=== PATIENT | female | born 1995 | race Hispanic/Latino ===

== ENCOUNTER 2018-01-04 08:18 | Inpatient (IN) | payer OTHER ==
[~2018-01-04] VITALS: Ht 152.4 cm; Wt 73.0 kg
--- NOTE | 2018-01-04 17:43 | PR ---
[facility] [address], [place] [address] Signed Progress Notes IP Datetime Report Generated by EMILY: 01/04/2018 17:42 PROGRESS NOTES: [id number] Impression: Slow Progression of Labor Procedures: Sterile Vag Exam Plan: Continue present management Informed Consent Obtain: Vaginal Delivery; Risks, Benefits and Alternatives Discussed VITAL SIGNS: [id number] Vital Signs: Reviewed; Within Normal Limits EXAM: [id number] Dilatation: 3.5 Effacement: 90 Station: -2 Uterine Contractions: q 2 min MEMBRANES: [id number] Membrane Status: Ruptured Amniotic Fluid Color: Meconium, Light Comments: Comfortable after epidural. Progressing slowly. Will continue. Fetus A: [id number] FHR Baseline: 140 Variability: Moderate 6-25bpm Accelerations: 15X15 Decelerations: None FHR Category: Category I Presentation: Vertex Comments on Fetus A: No evidence of metabolic acidosis Fetus B: [id number] Signing Physician: Milli Max MD Copies: ~ *Electronically Signed* 01/04/18 1742 MILLI MAX MD PATIENT NAME: JACKELYN NGUYEN TRAMAINE PROGRESS NOTE DATE OF : 89 PHYSICIAN: MILLI MAX MD RPT #: [id number] REPORT IS CONFIDENTIAL AND NOT TO BE RELEASED WITHOUT AUTHORIZATION
--- NOTE | 2018-01-05 11:31 | PR ---
[facility] [address] [facility] [place], [place] [address] Signed PP Progress Notes Datetime Report Generated by EMILY: 01/05/2018 11:31 SUBJECTIVE: [id number] Pain: Within normal limits Nausea/Vomiting: Denies Vital Signs: [id number] Vital Signs: Reviewed; Within Normal Limits EXAM: [id number] Cardiovascular: Not Done Respiratory: Not Done Abdomen/Uterus: Abnormal Lochia: Normal Vulva/Perineum: Not Done Breasts: Not Done CVA Tenderness: Not Done Extremities: Normal Incision: Not Applicable Progress: Abnormal Exam Comments: Fundus firm, NT @ U-1. IMPRESSION/PLAN/PROCEDURES: [id number] Impression: Normal progression Plan: Continue present management Progress Notes: Doing well though little sleep and not breast feeding well. Signing Physician: Milli Max MD Copies: ~ *Electronically Signed* 01/05/18 1131 MILLI MAX MD PATIENT NAME: JACKELYN NGUYEN PROGRESS NOTE DATE OF : [birth year] PHYSICIAN: MILLI MAX MD RPT #: [id number] REPORT IS CONFIDENTIAL AND NOT TO BE RELEASED WITHOUT AUTHORIZATION
--- NOTE | 2018-01-06 09:51 | PR ---
[facility] [address] [facility] [place], [place] [address] Signed PP Progress Notes Datetime Report Generated by EMILY: 01/06/2018 09:51 SUBJECTIVE: [id number] Pain: Within normal limits Nausea/Vomiting: Denies Vital Signs: [id number] Vital Signs: Reviewed; Within Normal Limits EXAM: [id number] Cardiovascular: Not Done Respiratory: Not Done Abdomen/Uterus: Abnormal Lochia: Normal Vulva/Perineum: Not Done Breasts: Not Done CVA Tenderness: Not Done Extremities: Normal Incision: Not Applicable Progress: Normal Exam Comments: Fundus firm, NT @ U-1. H/H 9.7/28.8, WBC 10.2, plat 170k IMPRESSION/PLAN/PROCEDURES: [id number] Impression: Normal progression Plan: Continue present management Progress Notes: Breast feeding improving though little sleep overnight. Signing Physician: Milli Max MD Copies: ~ *Electronically Signed* 01/06/18 0951 MILLI MAX MD PATIENT NAME: JACKELYN NGUYEN TRAMAINE PROGRESS NOTE DATE OF : [birth year] PHYSICIAN: MILLI MAX MD RPT #: [id number] REPORT IS CONFIDENTIAL AND NOT TO BE RELEASED WITHOUT AUTHORIZATION
--- NOTE | 2018-01-07 09:08 | PR ---
[facility] [place] [facility] [address] [facility] [place], [place] [address] Signed PP Progress Notes Datetime Report Generated by CPCarmen: 01/07/2018 09:08 SUBJECTIVE: [id number] Pain: Within normal limits Nausea/Vomiting: Denies Vital Signs: [id number] Vital Signs: Reviewed; Within Normal Limits EXAM: [id number] Cardiovascular: Not Done Respiratory: Not Done Abdomen/Uterus: Abnormal Lochia: Normal Vulva/Perineum: Not Done Breasts: Not Done CVA Tenderness: Not Done Extremities: Normal Incision: Not Applicable Progress: Normal Exam Comments: Fundus firm, NT @ U-1. IMPRESSION/PLAN/PROCEDURES: [id number] Impression: Normal progression Plan: Discharge Procedures: None Progress Notes: Doing well. She is ready for D/C. Signing Physician: Milli Max MD Copies: ~ *Electronically Signed* 01/07/18 0908 MILLI MAX MD PATIENT NAME: JACKELYN NGUYEN PROGRESS NOTE DATE OF : [birth year] PHYSICIAN: MILLI MAX MD RPT #: [id number] REPORT IS CONFIDENTIAL AND NOT TO BE RELEASED WITHOUT AUTHORIZATION
== END 2018-01-07 10:40 | disposition home or self-care (01) | DRG 775 ==
LOC: FBCO 08:18 → FBC 08:30 → FBCO 01-10 13:13
PROVIDERS: ADMIT Obstetrics & Gynecology
PROC: 00HU33Z Insertion of Infusion Device into Spinal Canal, Percutaneous Approach (ICD-10-PCS; 2018-01-04)
PROC: 3E0R3BZ Introduction of Anesthetic Agent into Spinal Canal, Percutaneous Approach (ICD-10-PCS; 2018-01-04)
PROC: 10D07Z6 Extraction of Products of Conception, Vacuum, Via Natural or Artificial Opening (ICD-10-PCS; principal; 2018-01-05)
PROC: 0KQM0ZZ Repair Perineum Muscle, Open Approach (ICD-10-PCS; 2018-01-05)
DX: O42.92 Full-term premature rupture of membranes, unspecified as to length of time between rupture and onset of labor (principal); O77.0 Labor and delivery complicated by meconium in amniotic fluid; O99.824 Streptococcus B carrier state complicating childbirth; O99.02 Anemia complicating childbirth; D64.9 Anemia, unspecified; O99.344 Other mental disorders complicating childbirth; F32.9 Major depressive disorder, single episode, unspecified; O70.1 Second degree perineal laceration during delivery; O63.1 Prolonged second stage (of labor); Z79.899 Other long term (current) drug therapy; Z3A.39 39 weeks gestation of pregnancy; Z37.0 Single live birth
CPT/HCPCS: 01960; 36415; 82803; 85027; J2405; J2540; J2590; J3010; J7120

== ENCOUNTER 2018-04-12 20:21 | Emergency (ER) | payer OTHER ==
[~2018-04-12] VITALS: Ht 152.4 cm; Wt 68.0 kg
[2018-04-12] MEDS ORDERED: FLUOXETINE HCL20 MG PO (22:11)
[2018-04-12] MEDS ORDERED: KEFLEX500 MG PO (23:45)
== END 2018-04-12 23:55 | disposition home or self-care (01) ==
LOC: ED 20:21
DX: L03.032 Cellulitis of left toe (principal); L60.0 Ingrowing nail; Z79.899 Other long term (current) drug therapy
CPT/HCPCS: 99283